=== PATIENT | female | born 2000 | race American Indian/Alaskan Native ===

== ENCOUNTER 2018-11-27 22:35 | Inpatient (IN) | payer MEDICAID ==
--- NOTE | 2018-11-27 23:27 | History and Physical Report ---
History of Present Illness Date of examination: 11/27/18 Date of admission: 11/27/18 22:40 Chief complaint: SROM @ 2140 History of present illness: Pt is a 18yo BF EDC 12/22/18; EGA 36 4/7 weeks presents to L&D complaining of SROM @ 2140 followed by [facility]. She received care at [facility], but records are not available. She states GBS is Negative. Past History Past Medical History: no pertinent history Past Surgical History: no surgical history Family/Genetic History: none Social history: no significant social history, single - Obstetrical History Expected Date of Delivery: 12/22/18 Actual Gestation: 36 Week(s) 4 Day(s) Medications and Allergies Allergies Allergy/AdvReac Type Severity Reaction Status Date / Time No Known Allergies Allergy Verified 11/27/18 23:25 Home Medications Medication Instructions Recorded Confirmed Last Taken Type Pnv No.95/Ferrous Fum/Folic AC 1 tab PO DAILY 11/27/18 11/27/18 11/17/18 10:00 History [ Formula Tablet] Review of Systems All systems: negative - Vital Signs Vital signs: Vital Signs Pulse BP 76 107/59 11/27/18 23:22 11/27/18 23:22 Temp Pulse Resp BP Pulse Ox 76 107/59 11/27/18 23:22 11/27/18 23:22 - Physical Exam Breasts: Positive: deferred Cardiovascular: Regular rate Lungs: Positive: Clear to auscultation Abdomen: Positive: normal appearance, soft Vagina: Positive: normal moisture Uterus: Positive: normal size Extremities: Positive: normal - Obstetrical FHR: category 1 Uterine Contraction Monitor Mode: External Cervical Dilatation: 2 (per nurse) Cervical Effacement Percentage: 50 (per nurse) station: -2 Uterine Contraction Pattern: Irregular Uterine Tone Measurement Phase: Contraction Uterine Contraction Intensity: Moderate Results Result Diagrams: 11/28/18 00:33 All other labs normal. Assessment and Plan - Patient Problems (1) 36 weeks gestation of Onset Date: ~11/27/18 Current Visit: Yes Status: Acute Plan to address problem: A: IUP @ 36 4/7 weeks in labor PPROM PTL P: Admit to L&D for expectant vaginal delivery Obtain records (2) contractions Onset Date: ~11/27/18 Current Visit: Yes Status: Acute (3) premature rupture of membranes (PPROM) with onset of labor within 24 hours of rupture in third trimester, antepartum Onset Date: ~11/27/18 Current Visit: Yes Status: Acute
[2018-11-28] MEDS ORDERED: BRETHINE SUB-Q PRN ×2 (00:23→04:17)
[2018-11-28] MEDS ORDERED: BRETHINE IVP PRN ×2 (00:23→04:17)
[2018-11-28] MEDS ORDERED: XYLOCAINE 2% INFILTRATI ONE ×2 (00:23→04:17)
[2018-11-28] MEDS ORDERED: LACTATED RINGERS 1,000 ML IV SCH ×2 (01:00→05:00)
[2018-11-28] MEDS ORDERED: PITOCin/NS 30 UNIT/500ML 30 UNITS/500 ML BAG IV SCH ×4 (01:00→05:00)
[2018-11-28] MEDS ORDERED: PITOCin/NS 20 UNIT/1000ML DRIP 20 UNITS/1,000 ML BAG IV SCH ×3 (01:00→05:00)
[2018-11-28 01:11] LABS: Hematocrit 34.6 % (30.3-42.9); Hemoglobin 11.6 gm/dl (10.1-14.3); Mean Corpuscular HGB Conc 34 % (30-34); Mean Corpuscular Volume 93 fl (79-97); Platelet Count 218 K/mm3 (140-440); Red Blood Count 3.74 M/mm3 (3.65-5.03); Red Cell Distribution Width 12.6 % (13.2-15.2)
[2018-11-28 01:48] LABS: Hepatitis C Virus Antibody Non-Reactive (NonReactive)
[2018-11-28] MEDS ORDERED: STADOL IV PRN (02:19)
[2018-11-28] MEDS ORDERED: SUBLIMAZE IV PRN (02:19)
[2018-11-28] MEDS ORDERED: MINERAL OIL PO PRN ×2 (02:19→04:17)
[2018-11-28 03:31] LABS: Amphetamine Screen,Urine PRESUMPTIVE NEGATIVE; Benzodiazepines Screen,Urine PRESUMPTIVE NEGATIVE; Cannabinoid Screen,Urine PRESUMPTIVE NEGATIVE; Cocaine Screen,Urine PRESUMPTIVE NEGATIVE; Methadone Screen,Urine PRESUMPTIVE NEGATIVE; Opiate Screen,Urine PRESUMPTIVE NEGATIVE
--- NOTE | 2018-11-28 04:10 | Procedure Note ---
OB Delivery Note - Delivery Date of Delivery: 11/28/18 Surgeon: ALANNA CHANG Estimated blood loss: 100cc - Vaginal Delivery presentation: vertex Delivery position: OA Intrapartum events: none Delivery induction: none Delivery augmentation: rupture of membranes, pitocin Delivery monitor: external FHT, external uterine Route of delivery: Delivery placenta: spontaneous Delivery cord: nuchal cord, 3 umbilical vessels Episiotomy: none Delivery laceration: none Anesthesia: none Delivery comments: Infant delivered OA and placed on Mom's chest for [id number] bonding and delayed cord clamping - Infant A at 1 minute: 8 at 5 minutes: 9 Infant Gender: Female (2901gms)
[2018-11-28] MEDS ORDERED: TYLENOL PO PRN (04:20)
[2018-11-28] MEDS ORDERED: BENADRYL PO PRN (04:20)
[2018-11-28] MEDS ORDERED: NORCO 5/325 PO PRN (04:20)
[2018-11-28] MEDS ORDERED: PHENERGAN PO PRN (04:20)
[2018-11-28] MEDS ORDERED: ZOFRAN IV PRN (04:20)
[2018-11-28] MEDS ORDERED: PHENERGAN PR PRN (04:20)
[2018-11-28] MEDS ORDERED: TUCKS PAD TP PRN (04:20)
[2018-11-28] MEDS ORDERED: LANSINOH TP PRN (04:20)
[2018-11-28] MEDS ORDERED: DULCOLAX PR PRN (04:20)
[2018-11-28] MEDS ORDERED: MILK OF MAGNESIA PO PRN (04:20)
[2018-11-28] MEDS ORDERED: SODIUM CHLORIDE FLUSH SYRINGE 10 ML IV NR (05:00)
[2018-11-28] MEDS: IBUPROFEN PO SCH ×3 (05:45→18:35)
[2018-11-28] MEDS: FEOSOL PO SCH (09:56)
[2018-11-28] MEDS: COLACE PO SCH (09:56)
[2018-11-28] MEDS: PRENATAL VITAMIN PO SCH (09:57)
[2018-11-28 17:55] LABS: Hematocrit 35.9 % (30.3-42.9); Hemoglobin 12.1 gm/dl (10.1-14.3)
[2018-11-29] MEDS ORDERED: BOOSTRIX IM ONE (04:20)
[2018-11-29] MEDS ORDERED: M-M-R II VACCINE SUB-Q ONE (06:00)
--- NOTE | 2018-11-29 10:13 | Progress Note ---
Assessment and Plan - Patient Problems (1) 36 weeks gestation of Onset Date: ~11/27/18 Current Visit: Yes Status: Resolved (2) contractions Onset Date: ~11/27/18 Current Visit: Yes Status: Resolved (3) premature rupture of membranes (PPROM) with onset of labor within 24 hours of rupture in third trimester, antepartum Onset Date: ~11/27/18 Current Visit: Yes Status: Resolved (4) (normal spontaneous vaginal delivery) Onset Date: 11/29/18 Current Visit: Yes Status: Resolved Plan to address problem: A: S/P - PPD #1 Doing well P: May go home today. Subjective - Subjective Date of service: 11/29/18 Principal diagnosis: s/p - PPD #1 Interval history: Pt is feeling well without complaints. Bleeding improved. Patient reports: appetite normal, voiding normally, pain well controlled, flatus, ambulating normally, no dizzy ambulation, no nauseated : doing well, nursing well, bottle feeding Objective - Vital Signs Latest vital signs: Vital Signs Temp Pulse Resp BP BP Pulse Ox 11/29/18 08:58 98.3 F 65 18 99/63 97 11/29/18 00:15 98.6 F 57 L 18 96/67 11/28/18 16:49 98.3 F 57 L 20 114/64 95 11/28/18 12:02 98.4 F 73 20 104/51 96 Intake and Output 11/28/18 11/29/18 11/29/18 22:59 06:59 14:59 Intake Total 480 Output Total 450 400 Balance -450 80 Intake: Intake, Free Water 480 Output: Urine 450 400 Void 450 400 Other: Total, Output Amount 450 400 # Voids Void 1 - Exam Cardiovascular: Present: Regular rate Lungs: Present: Clear to auscultation Abdomen: Present: normal appearance, soft Uterus: Present: normal, firm, fundal height below umbilicus Extremities: Present: normal - Labs Labs: Laboratory Tests 11/28/18 11/28/18 11/28/18 00:33 00:33 00:39 WBC 7.8 RBC 3.74 Hgb 11.6 Hct 34.6 MCV 93 MCH 31 MCHC 34 RDW 12.6 L Plt Count 218 Urine Opiates Screen Urine Methadone Screen Ur Barbiturates Screen Ur Phencyclidine Scrn Ur Amphetamines Screen U Benzodiazepines Scrn Urine Cocaine Screen U Marijuana (THC) Screen Drugs of Abuse Note RPR Nonreactive Hep Bs Antigen Hepatitis C Antibody HIV 1&2 Antibody Rapid HIV P24 Antigen Rubella IgG Antibody Blood Type B POSITIVE Antibody Screen Negative 11/28/18 11/28/18 11/28/18 00:39 00:39 00:39 WBC RBC Hgb Hct MCV MCH MCHC RDW Plt Count Urine Opiates Screen Urine Methadone Screen Ur Barbiturates Screen Ur Phencyclidine Scrn Ur Amphetamines Screen U Benzodiazepines Scrn Urine Cocaine Screen U Marijuana (THC) Screen Drugs of Abuse Note RPR Hep Bs Antigen Non-reactive Hepatitis C Antibody Non-reactive HIV 1&2 Antibody Rapid Non react HIV P24 Antigen Non react Rubella IgG Antibody Immune Blood Type Antibody Screen 11/28/18 11/28/18 02:20 17:42 WBC RBC Hgb 12.1 Hct 35.9 MCV MCH MCHC RDW Plt Count Urine Opiates Screen Presumptive negative Urine Methadone Screen Presumptive negative Ur Barbiturates Screen Presumptive negative Ur Phencyclidine Scrn Presumptive negative Ur Amphetamines Screen Presumptive negative U Benzodiazepines Scrn Presumptive negative Urine Cocaine Screen Presumptive negative U Marijuana (THC) Screen Presumptive negative Drugs of Abuse Note Disclamer RPR Hep Bs Antigen Hepatitis C Antibody HIV 1&2 Antibody Rapid HIV P24 Antigen Rubella IgG Antibody Blood Type Antibody Screen
[2018-11-29] MEDS: FEOSOL PO SCH (10:23)
[2018-11-29] MEDS: PRENATAL VITAMIN PO SCH (10:23)
[2018-11-29] MEDS: COLACE PO SCH (10:23)
--- NOTE | 2018-11-29 11:00 | Discharge Summary ---
Providers - Providers Date of Admission: 11/27/18 22:40 Date of discharge: 11/29/18 Attending physician: ALANNA CHANG Primary care physician: ALANNA CHANG Hospitalization Reason for admission: active labor, IUP - , rupture of membranes Delivery: Episiotomy: none Laceration: none Other procedures: none complications: none Discharge diagnosis: delivery Yeso baby: female Hospital course: Unremarkable. Condition at discharge: Good Disposition: DC-01 TO HOME OR SELFCARE - Discharge Diagnoses (1) 36 weeks gestation of Status: Resolved (2) contractions Status: Resolved (3) premature rupture of membranes (PPROM) with onset of labor within 24 hours of rupture in third trimester, antepartum Status: Resolved (4) (normal spontaneous vaginal delivery) Status: Resolved Plan - Discharge Medications Prescriptions: Ibuprofen [Motrin 600 MG tab] 600 mg PO Q6H #30 tablet Vit-Fe Fumar-FA [ Vitamin] 1 each PO QDAY #30 tablet - Provider Discharge Summary Activity: routine, no sex for 6 weeks, no heavy lifting 4 weeks, no strenuous exercise Diet: routine Instructions: routine Additional instructions: [] Smoking cessation referral if applicable(refer to patient education folder for contact #) [] Refer to [facility]'s [facility] Booklet Call your doctor immediately for: * Fever > 100.5 * Heavy vaginal bleeding ( >1 pad per hour) * Severe persistent headache * Shortness of breath * Reddened, hot, painful area to leg or breast * Drainage or odor from incision. * Keep incision clean and dry at all times and follow doctor's instructions regarding bathing/showering - Follow up plan Follow up: ALANNA CHANG MD [Primary Care Provider] - 6 Weeks Forms: [facility] Discharge Summary
[2018-11-29] MEDS: IBUPROFEN PO SCH (12:06)
[2018-11-29 16:58] VITALS: BP 99/58
== END 2018-11-29 18:15 | disposition home or self-care (01) | DRG 775 ==
LOC: TRG 22:35 → OBSVTOIN 22:40 → LD 22:40 → OB 11-28 05:18
PROVIDERS: ADMIT Obstetrics & Gynecology; ATTEND Obstetrics & Gynecology
PROC: 10E0XZZ Delivery of Products of Conception, External Approach (ICD-10-PCS; principal; 2018-11-28)
DX: O60.14X0 Preterm labor third trimester with preterm delivery third trimester, not applicable or unspecified (principal); O42.013 Preterm premature rupture of membranes, onset of labor within 24 hours of rupture, third trimester; O69.81X0 Labor and delivery complicated by cord around neck, without compression, not applicable or unspecified; Z3A.36 36 weeks gestation of pregnancy; Z37.0 Single live birth
CPT/HCPCS: 36415; 80307; 85014; 85018; 85027; 86592; 86706; 86762; 86803; 86850; 86900; 86901; 87806; G0378; J2590; J3010; J7120

== ENCOUNTER 2019-06-18 01:38 | Emergency (ER) | payer MEDICAID ==
[2019-06-18 01:49] VITALS: BP 108/47
--- NOTE | 2019-06-18 03:12 | Emergency Department Report ---
- General Chief Complaint: Upper Respiratory Infection Stated Complaint: COLD, FEVER, CHILLS, SORE THROAT Time Seen by Provider: 06/18/19 02:53 Source: patient Mode of arrival: Ambulatory Limitations: No Limitations - History of Present Illness Initial Comments: Pt is a 18 y/o aaf who presents with child with similar symptoms including cough fever sorethroat x 4 days symptom exacerbated by coughing symptoms relieved by nothing pt denies hx of of asthma or bronchitis pt is tolerating po intake without symptoms, cough is productive yellow thick no tmax recorded at home, no fever noted in triage tonight. MD Complaint: fever, cough, sore throat, rhinorrhea, nasal congestion, sinus pain Onset/Timin -: days(s) Severity: moderate Severity scale (0 -10): 4 Quality: burning, sharp Consistency: constant Improves With: nothing Worsens With: activity Associated Symptoms: fever, chills, rhinorrhea, nasal congestion, sore throat, cough, ear pain. denies: abdominal pain, nausea, vomiting, diarrhea, dysuria, rash, hoarseness Treatments Prior to Arrival: none - Related Data Home Medications Medication Instructions Recorded Confirmed Last Taken Pnv No.95/Ferrous Fum/Folic AC 1 tab PO DAILY 11/27/18 11/27/18 11/17/18 10:00 [ Formula Tablet] Previous Rx's Medication Instructions Recorded Last Taken Type Ibuprofen [Motrin 600 MG tab] 600 mg PO Q6H #30 tablet 11/29/18 Unknown Rx Vit-Fe Fumar-FA [ 1 each PO QDAY #30 tablet 11/29/18 Unknown Rx Vitamin] Allergies Allergy/AdvReac Type Severity Reaction Status Date / Time No Known Allergies Allergy Verified 11/27/18 23:25 ED Review of Systems ROS: Stated complaint: COLD, FEVER, CHILLS, SORE THROAT Other details as noted in HPI Constitutional: denies: chills, fever Eyes: denies: eye pain, eye discharge, vision change ENT: denies: ear pain, throat pain Respiratory: cough. denies: shortness of breath, wheezing Cardiovascular: denies: chest pain, palpitations, dyspnea on exertion, syncope, paroxysmal nocturnal dyspnea Endocrine: no symptoms reported Gastrointestinal: denies: abdominal pain, nausea, vomiting, diarrhea Genitourinary: denies: urgency, dysuria, discharge Musculoskeletal: denies: back pain, joint swelling, arthralgia, myalgia Skin: denies: rash, lesions Neurological: denies: headache, weakness, paresthesias Psychiatric: denies: anxiety, depression Hematological/Lymphatic: denies: easy bleeding, easy bruising ED Past Medical Hx - Past Medical History Previous Medical History?: No Hx Hypertension: No Hx Congestive Heart Failure: No Hx Diabetes: No Hx Deep Vein Thrombosis: No Hx Renal Disease: No Hx Sickle Cell Disease: No Hx Seizures: No Hx Asthma: No Hx COPD: No Hx HIV: No - Surgical History Past Surgical History?: No - Social History Smoking Status: Never Smoker Substance Use Type: None - Medications Home Medications: Home Medications Medication Instructions Recorded Confirmed Last Taken Type Pnv No.95/Ferrous Fum/Folic AC 1 tab PO DAILY 11/27/18 11/27/18 11/17/18 10:00 History [ Formula Tablet] Ibuprofen [Motrin 600 MG tab] 600 mg PO Q6H #30 tablet 11/29/18 Unknown Rx Vit-Fe Fumar-FA [ 1 each PO QDAY #30 tablet 11/29/18 Unknown Rx Vitamin] ED Physical Exam - General Limitations: No Limitations General appearance: alert, in no apparent distress - Head Head exam: Present: atraumatic, normocephalic, normal inspection - Eye Eye exam: Present: normal appearance, PERRL, EOMI. Absent: conjunctival injection, nystagmus Pupils: Present: normal accommodation - ENT ENT exam: Present: mucous membranes moist, TM's normal bilaterally, normal external ear exam, other (bila maxillary sinus tenderness tenderness to palpation no erythema no swelling ) - Expanded ENT Exam Expanded Ear exam: Present: normal external inspection Mouth exam: Absent: trismus Throat exam: Positive: tonsillar erythema, tonsillomegaly, other (uvula midline no stridor no wheezing no exudate no lesions ). Negative: tonsillar exudate, R peritonsillar mass, L peritonsillar mass - Neck Neck exam: Present: normal inspection, tenderness, full ROM. Absent: meningismus, lymphadenopathy, thyromegaly - Respiratory Respiratory exam: Present: normal lung sounds bilaterally. Absent: respiratory distress, wheezes, rales, rhonchi, stridor, chest wall tenderness, prolonged expiratory - Cardiovascular Cardiovascular Exam: Present: regular rate, normal rhythm, normal heart sounds. Absent: systolic murmur, diastolic murmur, rubs, gallop - GI/Abdominal GI/Abdominal exam: Present: soft, normal bowel sounds. Absent: distended, tenderness, guarding, rebound, rigid, bruit, hernia - Rectal Rectal exam: Present: deferred - Extremities Exam Extremities exam: Present: normal inspection, full ROM, normal capillary refill. Absent: tenderness, pedal edema, joint swelling, calf tenderness - Back Exam Back exam: Present: normal inspection, full ROM. Absent: tenderness, CVA tenderness (R), CVA tenderness (L), muscle spasm, paraspinal tenderness, vertebral tenderness, rash noted - Neurological Exam Neurological exam: Present: alert, oriented X3, CN II-XII intact, normal gait, reflexes normal. Absent: motor sensory deficit - Psychiatric Psychiatric exam: Present: normal affect, normal mood - Skin Skin exam: Present: warm, dry, intact, normal color. Absent: rash ED Course Vital Signs 06/18/19 01:46 Temperature 99.4 F Pulse Rate 114 H Respiratory 20 Rate Blood Pressure 108/47 O2 Sat by Pulse 98 Oximetry ED Medical Decision Making - Radiology Data Radiology results: report reviewed, image reviewed Ordering Physician: AAMIR BROOKS NP Date of Service: 06/18/19 Procedure(s): XR chest 1V ap Accession Number(s): [id number] cc: AAMIR BROOKS NP Fluoro Time In Minutes: CHEST 1 VIEW INDICATION / CLINICAL INFORMATION: cough fever sob. COMPARISON: None available. FINDINGS: SUPPORT DEVICES: None. HEART / MEDIASTINUM: No significant abnormality. LUNGS / PLEURA: Mild haziness is seen in the perihilar regions No pneumothorax. ADDITIONAL FINDINGS: No significant additional findings. IMPRESSION: Mild haziness in the perihilar regions Signer Name: Jaylon Troncoso MD FACR Signed: 06/18/2019 3:40 AM Workstation Name: [id number] Transcribed By: MS Dictated By: Jaylon Troncoso MD Electronically Authenticated By: Jaylon Troncoso MD Signed Date/Time: 06/18/19339 DD/ 0339 TD/TT: - Medical Decision Making this is bronchtis plan: ibuprofen, albuterol inhaler, prednisone, tesaslon, azithromycin , follow up with pcp in 2-3 days return to ed if symptoms worsen , pt verbalized agreement and understanding of discharge plan. dc'd to home in stable condition at this time. Critical care attestation.: If time is entered above; I have spent that time in minutes in the direct care of this critically ill patient, excluding procedure time. ED Disposition Referrals: CHRISTIANNE MCKENNA MD [Primary Care Provider] - 3-5 Days
--- NOTE | 2019-06-18 03:45 | XRay Report ---
CHEST 1 VIEW INDICATION / CLINICAL INFORMATION: cough fever. COMPARISON: None available. FINDINGS: SUPPORT DEVICES: None. HEART / MEDIASTINUM: No significant abnormality. LUNGS / PLEURA: No significant pulmonary or pleural abnormality. No pneumothorax. ADDITIONAL FINDINGS: No significant additional findings. IMPRESSION: No acute pulmonary or pleural abnormality. Signer Name: Jaylon Troncoso MD FACR Signed: 06/18/2019 3:40 AM Workstation Name: [id number]
== END 2019-06-18 04:24 | disposition home or self-care (01) ==
LOC: ED 01:38
DX: J40 Bronchitis, not specified as acute or chronic (principal); Z79.899 Other long term (current) drug therapy
CPT/HCPCS: 71045